=== PATIENT | male | born 1935 | race Caucasian/White ===

== ENCOUNTER → 2018-05-18 | Day surgery (SDC) | payer MEDICARE, BC ==
[2018-05-14 15:03] LABS: BASOPHILS % (AUTO) 0.5 % (0-1); EOSINOPHILS # (AUTO) 0.2 X10'3 (0-0.9); EOSINOPHILS % (AUTO) 2.9 % (0-6); LYMPHOCYTES # (AUTO) 1.3 X10'3 (1.1-4.8); LYMPHOCYTES % (AUTO) 19.8 % (21-51); MEAN CORPUSCULAR HEMOGLOBIN 32.7 PG (27.0-31.0); MEAN CORPUSCULAR HGB CONC 32.7 % (33.0-36.5); MEAN PLATELET VOLUME 8.5 FL (7.4-10.4); MONOCYTES # (AUTO) 0.8 X10'3 (0-0.9); MONOCYTES % (AUTO) 11.6 % (2-12); NEUTROPHILS # (AUTO) 4.2 X10'3 (1.8-7.7); NEUTROPHILS % (AUTO) 65.2 % (42-75); PRE OP HEMATOCRIT 38.3 % (42.0-52.0); PRE OP HEMOGLOBIN 12.5 g/dL (14.0-17.9); PRE OP PLATELET COUNT 186 X10'3 (140-440); RED BLOOD COUNT 3.83 X10'6 (4.70-6.10); RED CELL DISTRIBUTION WIDTH 14.1 % (11.5-14.5)
[2018-05-14 15:16] LABS: ALBUMIN 3.4 G/DL (3.4-5.0); ALBUMIN/GLOBULIN RATIO 0.9 (1.1-1.5); ALKALINE PHOSPHATASE 91 IU/L (46-116); BLOOD UREA NITROGEN 30 MG/DL (7-18); BUN/CREATININE RATIO 22.7 (5.4-32.0); CALCIUM 8.5 MG/DL (8.5-10.1); CHLORIDE 103 MMOL/L (99-107); CREATININE 1.32 MG/DL (0.60-1.10); PRE OP ALT 35 U/L (30-65); PRE OP ANION GAP 4 (8-16); PRE OP AST 29 U/L (10-37); PRE OP BILIRUB, TOTAL 0.7 MG/DL (0.0-1.0); PRE OP GLUCOSE 133 MG/DL (70-104); PRE OP POTASSIUM 3.9 MMOL/L (3.4-5.1); PRE OP SODIUM 142 MMOL/L (135-145); TOTAL CARBON DIOXIDE 34.9 MMOL/L (24-32); TOTAL PROTEIN 7.2 G/DL (6.4-8.2); eGFR 52 ML/MIN
[2018-05-18] VITALS (7 sets, daily range): BP systolic 146–160; BP diastolic 66–74
[~2018-05-18] VITALS: Ht 179.1 cm; Wt 120.7 kg
[~2018-05-18] MED LIST: ACET-2119 PO; ALBU8.5H8 PO; ALLO300T8 PO; ASPI-1265 PO; AZEL23SP BOTHNARES; BUPIVAcaine/PF 2.5mg/ml (0.25%) 10ml vial ONE; CARV-50 PO; CHOL10002 PO; CLON0.1T20 PO; DOCUMENT DATE & TIME OF BETA-BLOCKER PO ONE; DORZ10DR10 LEFTEYE; FERR-119 PO; FURO40TA4 PO; GUAI1TBM19 PO; INSU100V11; IRBE300T19 PO; LEVO175T2 PO; MAGN500C16 PO; MULT-933 PO; NIFE30TA88 PO; OMEG-79 PO; POTA10TA15 PO; SIMV10TA6 PO; WHEA98PO PO; albuterol 2.5 MG/3 ML nebule NEB ONE; albuterol 2.5 MG/3 ML nebule ONE; cefazolin/dext.iso 2gm/100 ML IV ONE; famotidine 20mg tablet PO ONE; fentaNYL/PF 50MCG/1 ML 2ML syringe IV PRN; fentaNYL/PF 50MCG/1 ML 2ML syringe ONE; hydrALAZINE 20mg/ml inj. IV PRN; labetalol 20mg/4ml (5mg/ml) syringe IV PRN; midazolam 2 mg/2 ml injection ONE; morphine 4 MG/ML inj SYRINge IV PRN; ondansetron/PF 4mg/2ml inj IV PRN; propofol 10mg/ml 20ml vial IV ONE; ringers solution, lacted 1,000 ML IV SCH
== END | disposition home or self-care (01) ==
LOC: PAS 07:46
PROVIDERS: ATTEND Orthopaedic Surgery Hand Surgery
DX: G56.01 Carpal tunnel syndrome, right upper limb (principal); E66.01 Morbid (severe) obesity due to excess calories; I10 Essential (primary) hypertension; J44.9 Chronic obstructive pulmonary disease, unspecified; G47.33 Obstructive sleep apnea (adult) (pediatric); M06.9 Rheumatoid arthritis, unspecified; G89.29 Other chronic pain; E03.9 Hypothyroidism, unspecified; E10.42 Type 1 diabetes mellitus with diabetic polyneuropathy; Z79.82 Long term (current) use of aspirin; Z96.651 Presence of right artificial knee joint; Z96.612 Presence of left artificial shoulder joint; Z79.891 Long term (current) use of opiate analgesic; Z90.49 Acquired absence of other specified parts of digestive tract; Z79.4 Long term (current) use of insulin; Z72.89 Other problems related to lifestyle; Z87.891 Personal history of nicotine dependence; Z68.37 Body mass index [BMI] 37.0-37.9, adult; Z79.899 Other long term (current) drug therapy; Z98.890 Other specified postprocedural states
CPT/HCPCS: 36415; 64721; 80053; 82948; 85025; 93005; 94640; 94760; A6222; A6449; J0690; J2250; J2704; J3010; J3490; J7120